=== PATIENT | male | born 1975 | race Caucasian/White ===

== ENCOUNTER 2019-08-25 04:50 | Emergency (ER) | payer BC, MEDICAID ==
[~2019-08-25] VITALS: Ht 182.9 cm; Wt 75.0 kg
[2019-08-25] MEDS ORDERED: normal saline 1000ML IV soln IVB ONE (05:15)
[2019-08-25] MEDS ORDERED: magnesium 2GM in 50ml NS 50 ML IV ONE (05:15)
[2019-08-25] MEDS ORDERED: phenobarbital inj 260 MG in normal saline 100ml IV soln 100 ML IV ONE (05:15)
[2019-08-25] MEDS ORDERED: thiamine inj. 100 MG in normal saline 100ml IV soln 99 ML IV ONE (05:15)
[2019-08-25] MEDS ORDERED: magnesium oxide 400mg tablet PO ONE (05:55)
[2019-08-25] MEDS ORDERED: diltiazem 5mg/ml 5ml inj. IV ONE (05:55)
[2019-08-25] MEDS ORDERED: phenobarbital inj 130 MG in normal saline 100ml IV soln 100 ML IV ONE ×5 (05:55→06:25)
[2019-08-25 06:03] LABS: BASOPHILS % (AUTO) 0.2 % (0-1); EOSINOPHILS % (AUTO) 0 % (0-6); HEMOGLOBIN 14.5 g/dl (14.0-17.9); LYMPHOCYTES # (AUTO) 0.7 X10'3 (1.1-4.8); LYMPHOCYTES % (AUTO) 6.6 % (21-51); MEAN CORPUSCULAR HEMOGLOBIN 32.3 PG (27.0-31.0); MEAN CORPUSCULAR HGB CONC 34.6 g/dL (33.0-36.5); MEAN CORPUSCULAR VOLUME 93.4 FL (78-98); MEAN PLATELET VOLUME 7.4 FL (7.4-10.4); MONOCYTES # (AUTO) 0.3 X10'3 (0-0.9); NEUTROPHILS # (AUTO) 9.6 X10'3 (1.8-7.7); NEUTROPHILS % (AUTO) 90.2 % (42-75); PLATELET COUNT 155 X10'3 (140-440); RED BLOOD COUNT 4.49 X10'6 (4.70-6.10); WHITE BLOOD COUNT 10.7 X10'3 (4.5-11.0)
[2019-08-25 06:09] LABS: ALANINE AMINOTRANSFERASE 295 U/L (12-78); ALBUMIN 4.2 G/DL (3.4-5.0); ALBUMIN/GLOBULIN RATIO 1.5 (1.1-1.5); ALKALINE PHOSPHATASE 71 IU/L (46-116); ANION GAP 13 (8-16); ASPARTATE AMINO TRANSFERASE 130 U/L (10-37); BILIRUBIN,TOTAL 2.8 MG/DL (0.1-1.0); BLOOD UREA NITROGEN 12 MG/DL (7-18); BUN/CREATININE RATIO 10.9 (5.4-32.0); CALCIUM 9.2 MG/DL (8.5-10.1); CHLORIDE 94 MMOL/L (99-107); ETHANOL < 0.010 GM/DL (0.0-0.010); GLUCOSE 122 MG/DL (70-104); MAGNESIUM 2.2 MG/DL (1.5-2.4); SODIUM 132 MMOL/L (135-145); TOTAL CARBON DIOXIDE 24.6 MMOL/L (24-32); eGFR 72 ML/MIN
[2019-08-25 06:48] LABS: URINE AMPHETAMINE SCREEN NEGATIVE (Neg); URINE BARBITUATE SCREEN POSITIVE (Neg); URINE BENZODIAZEPINES SCREEN NEGATIVE (Neg); URINE CANNABINOID SCREEN NEGATIVE (Neg); URINE COCAINE SCREEN NEGATIVE (Neg); URINE METHADONE SCREEN NEGATIVE (Neg); URINE OPIATE SCREEN NEGATIVE (Neg); URINE PHENCYCLIDINE SCREEN NEGATIVE (Neg)
[2019-08-25 07:12] VITALS: BP 130/74
[2019-08-25] MEDS ORDERED: HYDR-3686 PO (14:55)
[2019-08-25] MEDS ORDERED: CHLO25CA10 PO (14:55)
[2019-08-25] MEDS ORDERED: CLON-529 PO (14:55)
[2019-08-25] MEDS ORDERED: ONDA4TAB6 PO (14:55)
== END 2019-08-25 07:17 | disposition home or self-care (01) ==
LOC: ER 04:50
DX: S01.512A Laceration without foreign body of oral cavity, initial encounter (principal); F10.239 Alcohol dependence with withdrawal, unspecified; R74.0 Nonspecific elevation of levels of transaminase and lactic acid dehydrogenase [LDH]; R56.9 Unspecified convulsions; W22.8XXA Striking against or struck by other objects, initial encounter; Y93.89 Activity, other specified; Y92.89 Other specified places as the place of occurrence of the external cause; Y99.8 Other external cause status; Y90.0 Blood alcohol level of less than 20 mg/100 ml
CPT/HCPCS: 36415; 70450; 71045; 80053; 80305; 80320; 83735; 84484; 85025; 93005; 96365; 96366; 96368; 99285; J2560; J3411; J7030

== ENCOUNTER 2019-08-25 12:43 | Emergency (ER) | payer BC, MEDICAID ==
[~2019-08-25] VITALS: Ht 182.9 cm; Wt 75.0 kg
[2019-08-25] MEDS ORDERED: CHLO25CA10 PO (14:55)
[2019-08-25] MEDS ORDERED: CLON-529 PO (14:55)
[2019-08-25] MEDS ORDERED: ONDA4TAB6 PO (14:55)
[2019-08-25] MEDS ORDERED: HYDR-3686 PO (14:55)
[2019-08-25 15:04] VITALS: BP 129/84
[2019-08-25] MEDS ORDERED: ketorolac trometh. 30mg/ml inj. IV ONE (15:35)
[2019-08-25] MEDS ORDERED: ketorolac tromethamine 15mg/ml inj. IV ONE (15:35)
== END 2019-08-25 16:44 | disposition home or self-care (01) ==
LOC: ER 12:44
DX: F10.10 Alcohol abuse, uncomplicated (principal); R56.9 Unspecified convulsions; Z79.899 Other long term (current) drug therapy; Y90.9 Presence of alcohol in blood, level not specified
CPT/HCPCS: 72040; 96374; 99283; J1885

== ENCOUNTER 2021-09-16 17:38 | Inpatient (IN) | payer MEDICAID ==
[~2021-09-16] VITALS: Ht 180.3 cm; Wt 81.8 kg
[~2021-09-16 17:38] MED LIST: CHLO25CA10 PO; CLON-529 PO; ONDA4TAB6 PO
[2021-09-16 19:38] LABS: BASOPHILS % (AUTO) 0.3 % (0-1); EOSINOPHILS % (AUTO) 0.2 % (0-6); HEMATOCRIT 40.8 % (42.0-52.0); HEMOGLOBIN 14.4 g/dl (14.0-17.9); LYMPHOCYTES # (AUTO) 1.5 X10'3 (1.1-4.8); LYMPHOCYTES % (AUTO) 29.6 % (21-51); MEAN CORPUSCULAR HEMOGLOBIN 35.4 PG (27.0-31.0); MEAN CORPUSCULAR HGB CONC 35.3 g/dL (33.0-36.5); MEAN CORPUSCULAR VOLUME 100.2 FL (78-98); MEAN PLATELET VOLUME 8.9 FL (7.4-10.4); MONOCYTES # (AUTO) 0.5 X10'3 (0-0.9); MONOCYTES % (AUTO) 9.4 % (2-12); NEUTROPHILS # (AUTO) 3.1 X10'3 (1.8-7.7); NEUTROPHILS % (AUTO) 60.5 % (42-75); PLATELET COUNT 93 X10'3 (140-440); RED BLOOD COUNT 4.08 X10'6 (4.70-6.10); RED CELL DISTRIBUTION WIDTH 16.2 % (11.5-14.5); WHITE BLOOD COUNT 5.2 X10'3 (4.5-11.0)
[2021-09-16] MEDS ORDERED: thiamine 100mg tablet PO ONE (19:55)
[2021-09-16 20:03] LABS: ALANINE AMINOTRANSFERASE 161 U/L (12-78); ALBUMIN 3.1 G/DL (3.4-5.0); ALBUMIN/GLOBULIN RATIO 0.9 (1.1-1.5); ALKALINE PHOSPHATASE 149 IU/L (46-116); ANION GAP 10 (8-16); ASPARTATE AMINO TRANSFERASE 194 U/L (10-37); BILIRUBIN,TOTAL 2.4 MG/DL (0.1-1.0); BLOOD UREA NITROGEN 22 MG/DL (7-18); BUN/CREATININE RATIO 14.7 (5.4-32.0); CALCIUM 8.3 MG/DL (8.5-10.1); CHLORIDE 87 MMOL/L (99-107); ETHANOL < 0.010 GM/DL (0.0-0.010); GLUCOSE 118 MG/DL (70-104); SODIUM 128 MMOL/L (135-145); TOTAL CARBON DIOXIDE 31.3 MMOL/L (24-32); TOTAL PROTEIN 6.6 G/DL (6.4-8.2); eGFR 50 ML/MIN
[2021-09-16 20:07] LABS: POTASSIUM 2.5 MMOL/L (3.5-5.1)
[2021-09-16] MEDS ORDERED: potassium Cl 10 mEq/100mL bag IV ONE (20:10)
[2021-09-16] MEDS ORDERED: potassium Cl 20 mEq SR tablet PO ONE (20:10)
[2021-09-16] MEDS ORDERED: magnesium 2GM in 50ml NS 50 ML IV ONE (20:10)
[2021-09-16] MEDS ORDERED: temazepam 15mg capsule PO PRN (21:00)
[2021-09-16] MEDS ORDERED: QUET-1 PO (21:10)
[2021-09-16] MEDS ORDERED: ringers solution, lacted 1,000 ML IV ONE (21:30)
[2021-09-16 21:35] LABS: CLARITY,URINE CLEAR (Clear); COLOR,URINE YELLOW (Yellow); GLUCOSE, URINE 100 mg/dl (Neg); KETONES,URINE 15 mg/dl (Neg); LEUKOCYTE ESTERASE ,URINE NEGATIVE (Neg); OCCULT BLOOD,URINE MODERATE (Neg); PROTEIN,URINE 100 mg/dl (Neg)
[2021-09-16] MEDS ORDERED: HYDROcodone/acetaminophen 5mg/325mg tablet PO PRN (21:35)
[2021-09-16] MEDS ORDERED: bisacodyl 10mg suppository rectal RC PRN (21:35)
[2021-09-16] MEDS ORDERED: magnesium Cl slow-release 64mg tablet PO PRN (21:35)
[2021-09-16] MEDS ORDERED: diphenhydrAMINE 25mg capsule PO PRN (21:35)
[2021-09-16] MEDS ORDERED: LORazepam 2 mg/ml vial IV PRN ×2 (21:35)
[2021-09-16] MEDS ORDERED: haloperidol lactate 5mg/ml inj IM PRN (21:35)
[2021-09-16] MEDS ORDERED: dextrose 50%-water 50ml dispensing syringe IV PRN (21:35)
[2021-09-16] MEDS ORDERED: ondansetron 4mg rapidly disintigrating tab PO PRN (21:35)
[2021-09-16] MEDS ORDERED: HYDROcodone/acetaminophen 10/325mg tab PO PRN (21:35)
[2021-09-16] MEDS ORDERED: magnesium 2GM in 50ml NS 50 ML IV PRN (21:35)
[2021-09-16] MEDS ORDERED: acetaminophen 650mg rectal suppository RC PRN (21:35)
[2021-09-16] MEDS ORDERED: mag hydrox/Alum hydrox/simeth 30ml oral suspension PO PRN (21:35)
[2021-09-16] MEDS ORDERED: diphenhydrAMINE 50 mg/ml inj IV PRN (21:35)
[2021-09-16] MEDS ORDERED: magnesium 4gm in 100ml NS 100 ML IV PRN (21:35)
[2021-09-16] MEDS ORDERED: HYDROmorphone inj. 0.5 MG/0.5 ML DISP.SYRIN IV PRN (21:35)
[2021-09-16] MEDS ORDERED: morphine 2 MG/ML inj. syringe IV PRN ×2 (21:35)
[2021-09-16] MEDS ORDERED: POTASSIUM BICARB 20meq eff tab 20 MEQ TABLET.EFF PO PRN (21:35)
[2021-09-16] MEDS ORDERED: ondansetron/PF 4mg/2ml inj IV PRN (21:35)
[2021-09-16] MEDS ORDERED: acetaminophen 325mg tablet PO PRN (21:35)
[2021-09-16] MEDS ORDERED: potassium CL 10mEq/100ml bag 100 ML IV PRN (21:35)
[2021-09-16] MEDS ORDERED: magnesium hydroxide 30ml (MOM) UD suspension PO PRN (21:35)
[2021-09-16 21:43] LABS: NITRITES, URINE NEGATIVE (Neg); UA COLLECTION TYPE CLN CATCH MIDSTREAM
[2021-09-16 21:44] LABS: WBC,URINE NONE SEEN /HPF (0-4)
[2021-09-16 21:45] LABS: BACTERIA,URINE NONE SEEN /HPF (Neg); MUCUS STRANDS FEW /LPF (Neg); RBC,URINE 0-2 /HPF (0-2); SQUAMOUS EPITHELIAL CELL,UR FEW /LPF (FEW)
[2021-09-16 21:51] LABS: URINE AMPHETAMINE SCREEN NEGATIVE (Neg); URINE BARBITUATE SCREEN NEGATIVE (Neg); URINE BENZODIAZEPINES SCREEN NEGATIVE (Neg); URINE CANNABINOID SCREEN NEGATIVE (Neg); URINE COCAINE SCREEN NEGATIVE (Neg); URINE METHADONE SCREEN NEGATIVE (Neg); URINE OPIATE SCREEN NEGATIVE (Neg); URINE PHENCYCLIDINE SCREEN NEGATIVE (Neg)
[2021-09-16 22:16] LABS: APTT 25 SECONDS (22-32)
[2021-09-16 22:19] LABS: CREATINE KINASE 568 U/L (39-308); LIPASE 393 U/L (73-393); PHOSPHORUS 1.6 MG/DL (2.3-4.5)
[2021-09-16] MEDS: potassium Cl 20mEq in NS 1,000 ML IV SCH (22:38)
[2021-09-16] MEDS ORDERED: Neutra Phos packet PO PRN (23:05)
[2021-09-16] MEDS ORDERED: sodium phosphate inj. 30 MMOL in dextrose 5%-water 250 ML IV PRN (23:05)
[2021-09-16] MEDS ORDERED: sodium phosphate inj. 15 MMOL in dextrose 5%-water 250 ML IV PRN (23:05)
--- NOTE | 2021-09-17 01:47 | NUR ---
PT. GIVEN NEUTRA PHOS PACKET AT 0140. TID (EVERY 8 HOURS). PHOS LAB NEEDS TO BE DRAWN AFTER 3RD PACKET IS GIVEN.
--- NOTE | 2021-09-17 01:49 | NUR ---
MRI FORM DONE.
[2021-09-17 05:16] LABS: BASOPHILS % (AUTO) 0.2 % (0-1); EOSINOPHILS # (AUTO) 0.1 X10'3 (0-0.9); HEMATOCRIT 32.9 % (42.0-52.0); HEMOGLOBIN 11.8 g/dl (14.0-17.9); LYMPHOCYTES # (AUTO) 1.5 X10'3 (1.1-4.8); MEAN CORPUSCULAR HEMOGLOBIN 35.5 PG (27.0-31.0); MEAN CORPUSCULAR VOLUME 98.4 FL (78-98); MEAN PLATELET VOLUME 8.6 FL (7.4-10.4); MONOCYTES # (AUTO) 0.3 X10'3 (0-0.9); MONOCYTES % (AUTO) 5.4 % (2-12); NEUTROPHILS # (AUTO) 2.9 X10'3 (1.8-7.7); NEUTROPHILS % (AUTO) 60.4 % (42-75); PLATELET COUNT 89 X10'3 (140-440); RED BLOOD COUNT 3.34 X10'6 (4.70-6.10); RED CELL DISTRIBUTION WIDTH 15.8 % (11.5-14.5); WHITE BLOOD COUNT 4.7 X10'3 (4.5-11.0)
[2021-09-17 05:28] LABS: ALANINE AMINOTRANSFERASE 117 U/L (12-78); ALBUMIN 2.4 G/DL (3.4-5.0); ALBUMIN/GLOBULIN RATIO 0.8 (1.1-1.5); ALKALINE PHOSPHATASE 117 IU/L (46-116); ANION GAP 6 (8-16); ASPARTATE AMINO TRANSFERASE 127 U/L (10-37); BILIRUBIN,TOTAL 1.7 MG/DL (0.1-1.0); BLOOD UREA NITROGEN 14 MG/DL (7-18); BUN/CREATININE RATIO 16.7 (5.4-32.0); CALCIUM 7.5 MG/DL (8.5-10.1); CHLORIDE 94 MMOL/L (99-107); CHOL/HDL RATIO 4.9 (0.00-4.99); CHOLESTEROL 97 MG/DL (0-200); CREATININE 0.84 MG/DL (0.60-1.10); GLUCOSE 120 MG/DL (70-104); HDL CHOLESTEROL 20 MG/DL (35-60); LDL CHOLESTEROL 47 MG/DL (50-100); MAGNESIUM 2.3 MG/DL (1.5-2.4); SODIUM 130 MMOL/L (135-145); TOTAL CARBON DIOXIDE 30.4 MMOL/L (24-32); TOTAL PROTEIN 5.3 G/DL (6.4-8.2); TRIGLYCERIDES 202 MG/DL (20-135); eGFR > 90 ML/MIN
[2021-09-17 05:32] LABS: POTASSIUM 2.6 MMOL/L (3.5-5.1)
[2021-09-17] MEDS: pantoprazole 40mg Tablet.DR PO SCH (07:19)
[2021-09-17] MEDS: thiamine 100mg/ml 2ml inj. IV SCH ×3 (07:19→20:46)
[2021-09-17] MEDS: POTASSIUM BICARB 20meq eff tab 20 MEQ TABLET.EFF PO PRN ×2 (07:20→12:34)
[2021-09-17] MEDS: acetaminophen 325mg tablet PO PRN ×2 (07:20→16:04)
[2021-09-17] MEDS: docusate sod 100mg capsule PO SCH ×2 (07:21→20:00)
[2021-09-17] MEDS: heparin, porcine 5000 units/ml vial SQ SCH ×2 (07:22→20:00)
[2021-09-17] MEDS: K and/or MAG REPLACEMENT MC SCH ×2 (07:22→20:00)
[2021-09-17] MEDS: potassium Cl 20mEq in NS 1,000 ML IV SCH ×2 (09:02→19:01)
[2021-09-17] MEDS: multivitamins, therapeutics tablet PO SCH (09:02)
[2021-09-17] MEDS: folic acid 1mg/0.2ml inj IV SCH (09:30)
--- NOTE | 2021-09-17 11:55 | NUR ---
DR URENA AT BEDSIDE.
[2021-09-17] MEDS ORDERED: mag hydrox/Alum hydrox/simeth 30ml oral suspension PO ONE (20:45)
[2021-09-17] MEDS ORDERED: quetiapine 100mg tablet PO SCH (21:00)
[2021-09-18] MEDS: acetaminophen 325mg tablet PO PRN (03:08)
[2021-09-18] MEDS: potassium Cl 20mEq in NS 1,000 ML IV SCH (03:32)
[2021-09-18] MEDS: K and/or MAG REPLACEMENT MC SCH (08:00)
[2021-09-18] MEDS: heparin, porcine 5000 units/ml vial SQ SCH (08:37)
[2021-09-18] MEDS: multivitamins, therapeutics tablet PO SCH (08:37)
[2021-09-18] MEDS: docusate sod 100mg capsule PO SCH (08:37)
[2021-09-18] MEDS: pantoprazole 40mg Tablet.DR PO SCH (08:37)
[2021-09-18] MEDS: thiamine 100mg/ml 2ml inj. IV SCH ×2 (08:37→12:58)
[2021-09-18] MEDS: folic acid 1mg/0.2ml inj IV SCH (08:58)
--- NOTE | 2021-09-18 10:32 | NUR ---
Pt with c/o pain to back, [place] given per pain scale. pt's iv access noted to be out. new Iv inserted to Left hand. Prn [id number] also given for severe anxiety/agitation. Monitoring ongoing
[2021-09-18 11:00] VITALS: BP 132/88
[2021-09-18 12:04] LABS: ALANINE AMINOTRANSFERASE 123 U/L (12-78); ALBUMIN 2.6 G/DL (3.4-5.0); ALBUMIN/GLOBULIN RATIO 0.7 (1.1-1.5); ALKALINE PHOSPHATASE 115 IU/L (46-116); ANION GAP 6 (8-16); ASPARTATE AMINO TRANSFERASE 89 U/L (10-37); BILIRUBIN,TOTAL 0.8 MG/DL (0.1-1.0); BLOOD UREA NITROGEN 9 MG/DL (7-18); BUN/CREATININE RATIO 11.8 (5.4-32.0); CALCIUM 8.4 MG/DL (8.5-10.1); CHLORIDE 99 MMOL/L (99-107); CREATININE 0.76 MG/DL (0.60-1.10); GLUCOSE 98 MG/DL (70-104); MAGNESIUM 2.1 MG/DL (1.5-2.4); POTASSIUM 3.4 MMOL/L (3.5-5.1); SODIUM 131 MMOL/L (135-145); TOTAL CARBON DIOXIDE 26.4 MMOL/L (24-32); TOTAL PROTEIN 6.1 G/DL (6.4-8.2); eGFR > 90 ML/MIN
[2021-09-18] MEDS ORDERED: MULT-25 PO (12:54)
[2021-09-18] MEDS ORDERED: NALT50TA PO (12:54)
[2021-09-18] MEDS ORDERED: THIA100T70 PO (12:54)
[2021-09-18] MEDS ORDERED: POTASSIUM BICARBONATE/CIT AC 10 MEQ TABLET.EFF ONE (12:56)
[2021-09-18] MEDS ORDERED: FOLI1TAB27 PO (12:56)
[2021-09-21] MEDS ORDERED: thiamine 100mg tablet PO SCH (08:00)
[2021-09-21] MEDS ORDERED: folic acid 1mg tablet PO SCH (08:00)
== END 2021-09-18 15:15 | disposition home or self-care (01) | DRG 52 ==
LOC: ER 17:38 → ED HOLD 21:38
PROVIDERS: ADMIT Family Medicine; ATTEND Family Medicine
DX: G93.41 Metabolic encephalopathy (principal); D69.6 Thrombocytopenia, unspecified; M62.82 Rhabdomyolysis; N17.9 Acute kidney failure, unspecified; E83.39 Other disorders of phosphorus metabolism; E87.1 Hypo-osmolality and hyponatremia; D53.9 Nutritional anemia, unspecified; R74.01 Elevation of levels of liver transaminase levels; K70.10 Alcoholic hepatitis without ascites; K76.0 Fatty (change of) liver, not elsewhere classified; E86.0 Dehydration; E87.6 Hypokalemia; F10.239 Alcohol dependence with withdrawal, unspecified; G40.909 Epilepsy, unspecified, not intractable, without status epilepticus; I10 Essential (primary) hypertension; M54.9 Dorsalgia, unspecified; R82.4 Acetonuria; Z79.899 Other long term (current) drug therapy; Z87.820 Personal history of traumatic brain injury
CPT/HCPCS: 36415; 70450; 71045; 80053; 80061; 80305; 80320; 81001; 82550; 83036; 83690; 83735; 83880; 84100; 84132; 84443; 84484; 85025; 85610; 85730; 93005; 99285; G0378; J1644; J2060; J2405; J3411; J3475; J3480; J3490; J7030; J7120

== ENCOUNTER 2021-10-01 04:45 | Emergency (ER) | payer MEDICAID ==
[~2021-10-01] VITALS: Ht 180.3 cm; Wt 75.8 kg
[~2021-10-01 04:45] MED LIST changes: -CHLO25CA10 PO; -CLON-529 PO; +FOLI1TAB27 PO; +MULT-25 PO; +NALT50TA PO; -ONDA4TAB6 PO; +QUET-1 PO; +THIA100T70 PO
[2021-10-01 04:59] VITALS: BP 136/101
== END 2021-10-01 06:30 | disposition left against medical advice (07) ==
LOC: ER 04:46
DX: M54.2 Cervicalgia (principal); Z53.21 Procedure and treatment not carried out due to patient leaving prior to being seen by health care provider

== ENCOUNTER 2021-10-04 20:19 | Emergency (ER) | payer MEDICAID ==
[~2021-10-04] VITALS: Ht 180.3 cm; Wt 81.8 kg
[2021-10-04 20:35] VITALS: BP 122/95
== END 2021-10-04 22:26 | disposition left against medical advice (07) ==
LOC: ER 20:20
DX: R56.9 Unspecified convulsions (principal); Z53.21 Procedure and treatment not carried out due to patient leaving prior to being seen by health care provider

== ENCOUNTER 2021-10-06 20:47 | Inpatient (IN) | payer MEDICAID ==
[~2021-10-06] VITALS: Ht 180.3 cm; Wt 75.8 kg
--- NOTE | 2021-10-06 22:30 | NUR ---
ASSUMED CARE OF PT. AWAKE AND ALERT. STATED LAST DRINK AT 1100. STATED "IM AFRAID IM GOING TO GET S SEIZURE. NO SZ ACTIVITY OBSERVE AT THIS TIME WILL MONITOR.
[2021-10-06] MEDS ORDERED: thiamine 100mg/ml 2ml inj. IV STA (22:52)
[2021-10-06] MEDS ORDERED: multivitamins, therapeutics tablet PO STA (22:52)
[2021-10-06] MEDS ORDERED: folic acid 1mg/0.2ml inj IV STA (22:52)
[2021-10-06] MEDS ORDERED: cloNIDine 0.1 mg tablet PO STA (22:52)
[2021-10-06] MEDS ORDERED: normal saline 1000ml 1,000 ML IV ONE (22:55)
--- NOTE | 2021-10-06 23:00 | NUR ---
MEDICATED PT WITH ATIVAN IV FOR ETOH WD. PT WITH ANXIETY AND TREMORS.WILL MONITOR.
[2021-10-06] MEDS: LORazepam 2 mg/ml vial IV PRN (23:54)
[2021-10-06 23:56] LABS: BASOPHILS % (AUTO) 0.6 % (0-1); EOSINOPHILS # (AUTO) 0.1 X10'3 (0-0.9); EOSINOPHILS % (AUTO) 1.7 % (0-6); HEMATOCRIT 36.2 % (42.0-52.0); HEMOGLOBIN 12.9 g/dl (14.0-17.9); LYMPHOCYTES # (AUTO) 2.1 X10'3 (1.1-4.8); LYMPHOCYTES % (AUTO) 39.3 % (21-51); MEAN CORPUSCULAR HGB CONC 35.7 g/dL (33.0-36.5); MEAN CORPUSCULAR VOLUME 100.9 FL (78-98); MEAN PLATELET VOLUME 7.4 FL (7.4-10.4); MONOCYTES # (AUTO) 0.3 X10'3 (0-0.9); MONOCYTES % (AUTO) 5.1 % (2-12); NEUTROPHILS # (AUTO) 2.8 X10'3 (1.8-7.7); NEUTROPHILS % (AUTO) 53.3 % (42-75); PLATELET COUNT 149 X10'3 (140-440); RED BLOOD COUNT 3.58 X10'6 (4.70-6.10); RED CELL DISTRIBUTION WIDTH 16.6 % (11.5-14.5); WHITE BLOOD COUNT 5.3 X10'3 (4.5-11.0)
[2021-10-07 00:05] LABS: ALANINE AMINOTRANSFERASE 36 U/L (12-78); ALBUMIN 3.1 G/DL (3.4-5.0); ALKALINE PHOSPHATASE 85 IU/L (46-116); ANION GAP 9 (8-16); ASPARTATE AMINO TRANSFERASE 58 U/L (10-37); BILIRUBIN,TOTAL 1.1 MG/DL (0.1-1.0); BLOOD UREA NITROGEN 8 MG/DL (7-18); BUN/CREATININE RATIO 8.2 (5.4-32.0); CALCIUM 8.6 MG/DL (8.5-10.1); CHLORIDE 101 MMOL/L (99-107); CREATININE 0.97 MG/DL (0.60-1.10); GLUCOSE 115 MG/DL (70-104); LIPASE 584 U/L (73-393); POTASSIUM 3.7 MMOL/L (3.5-5.1); SODIUM 139 MMOL/L (135-145); TOTAL PROTEIN 6.1 G/DL (6.4-8.2); eGFR 83 ML/MIN
[2021-10-07 00:08] LABS: ETHANOL < 0.010 GM/DL (0.0-0.010)
--- NOTE | 2021-10-07 01:00 | NUR ---
PT AT CT
--- NOTE | 2021-10-07 02:00 | NUR ---
PT AWAKE AND ALERT. NO S/S OF WITHDRAWALS AT THIS TIME. WILL MONITOR.
--- NOTE | 2021-10-07 03:00 | NUR ---
PT WITH EYES CLOSE NON LABORED BREATHING. NO S/S OF WITHDRAWAL NOTED AT THIS TIME.
[2021-10-07] MEDS ORDERED: dextrose 50%-water 50ml dispensing syringe IV PRN (04:05)
[2021-10-07] MEDS: dextrose 5%-1/2 normal saline 1,000 ML IV SCH ×2 (04:05→16:57)
[2021-10-07] MEDS ORDERED: LORazepam 2 mg/ml vial IV PRN (04:05)
[2021-10-07] MEDS ORDERED: morphine 2 MG/ML inj. syringe IV PRN ×2 (04:05)
[2021-10-07] MEDS ORDERED: ondansetron/PF 4mg/2ml inj IV PRN (04:05)
[2021-10-07] MEDS ORDERED: diphenhydrAMINE 25mg capsule PO PRN (04:05)
[2021-10-07] MEDS ORDERED: HYDROmorphone inj. 0.5 MG/0.5 ML DISP.SYRIN IV PRN (04:05)
[2021-10-07] MEDS ORDERED: HYDROcodone/acetaminophen 5mg/325mg tablet PO PRN (04:05)
[2021-10-07] MEDS ORDERED: magnesium hydroxide 30ml (MOM) UD suspension PO PRN (04:05)
[2021-10-07] MEDS ORDERED: ondansetron 4mg rapidly disintigrating tab PO PRN ×2 (04:05→16:05)
[2021-10-07] MEDS ORDERED: haloperidol 5mg tablet PO PRN (04:05)
[2021-10-07] MEDS ORDERED: diphenhydrAMINE 50 mg/ml inj IV PRN (04:05)
[2021-10-07] MEDS ORDERED: mag hydrox/Alum hydrox/simeth 30ml oral suspension PO PRN (04:05)
[2021-10-07] MEDS ORDERED: haloperidol lactate 5mg/ml inj IM PRN (04:05)
[2021-10-07] MEDS ORDERED: HYDROcodone/acetaminophen 10/325mg tab PO PRN (04:05)
[2021-10-07] MEDS ORDERED: bisacodyl 10mg suppository rectal RC PRN (04:05)
[2021-10-07] MEDS ORDERED: acetaminophen 325mg tablet PO PRN ×2 (04:05)
--- NOTE | 2021-10-07 05:00 | NUR ---
PT WITH EYES CLOSE NON LABORED BREATHING. NO S/S WITHDRAWALS. WILL MONITOR.
[2021-10-07 07:02] LABS: URINE AMPHETAMINE SCREEN NEGATIVE (Neg); URINE BARBITUATE SCREEN NEGATIVE (Neg); URINE BENZODIAZEPINES SCREEN NEGATIVE (Neg); URINE CANNABINOID SCREEN NEGATIVE (Neg); URINE COCAINE SCREEN NEGATIVE (Neg); URINE METHADONE SCREEN NEGATIVE (Neg); URINE OPIATE SCREEN NEGATIVE (Neg); URINE PHENCYCLIDINE SCREEN NEGATIVE (Neg)
[2021-10-07] MEDS: lactulose 20gm/30ml cup PO SCH ×2 (07:21→20:00)
[2021-10-07] MEDS: docusate sod 100mg capsule PO SCH ×2 (07:21→19:28)
[2021-10-07] MEDS: heparin, porcine 5000 units/ml vial SQ SCH ×2 (07:21→21:00)
[2021-10-07] MEDS ORDERED: pantoprazole 40mg Tablet.DR PO SCH (07:30)
[2021-10-07] MEDS ORDERED: folic acid 1mg/0.2ml inj IV SCH (08:00)
[2021-10-07] MEDS ORDERED: thiamine 100mg/ml 2ml inj. IV SCH (08:00)
[2021-10-07 09:31] LABS: APTT 25 SECONDS (22-32)
[2021-10-07 09:41] LABS: MAGNESIUM 1.7 MG/DL (1.5-2.4); PHOSPHORUS 3.9 MG/DL (2.3-4.5)
[2021-10-07] MEDS: LORazepam 2 mg/ml vial IV PRN ×3 (09:53→21:00)
--- NOTE | 2021-10-07 13:05 | NUR ---
attempted report, nurse to call back
--- NOTE | 2021-10-07 13:40 | NUR ---
Rec'd pt to room 4010a.
[2021-10-07 14:30] VITALS: BP 143/86
[2021-10-07] MEDS: thiamine 100mg tablet PO SCH ×2 (17:01→21:00)
[2021-10-07 18:00] VITALS: BP 123/82
--- NOTE | 2021-10-07 18:20 | NUR ---
Patient report given, questions answered & plan of care reviewed with VERNON Quesada.
[2021-10-07] MEDS ORDERED: potassium CL 10mEq/100ml bag 100 ML IV PRN (18:40)
[2021-10-07] MEDS ORDERED: magnesium 4gm in 100ml NS 100 ML IV PRN (18:40)
[2021-10-07] MEDS ORDERED: potassium Cl 20 mEq SR tablet PO PRN ×2 (18:40)
[2021-10-07] MEDS ORDERED: magnesium Cl slow-release 64mg tablet PO PRN (18:40)
[2021-10-07] MEDS ORDERED: K and/or MAG REPLACEMENT MC SCH (20:00)
[2021-10-07] MEDS ORDERED: thiamine 100mg tablet PO SCH (21:00)
[2021-10-07] MEDS ORDERED: quetiapine 100mg tablet PO SCH (21:00)
[2021-10-07] MEDS ORDERED: temazepam 15mg capsule PO PRN (21:00)
[2021-10-07 22:00] VITALS: BP 143/84
[2021-10-08] MEDS: dextrose 5%-1/2 normal saline 1,000 ML IV SCH (00:05)
[2021-10-08] MEDS: LORazepam 2 mg/ml vial IV PRN ×2 (00:10→02:16)
--- NOTE | 2021-10-08 01:24 | NUR ---
After administering ativan at midnight, patient continued to say he needs to get up and get things done. Putting on clothes, shoes and hat. Re oriented him to time and that even if he needs to get things done, nothing is open at this time. He agreed to wait to 7am and then he wants to leave.
--- NOTE | 2021-10-08 02:50 | NUR ---
I called regarding pt's desire to leave AMA and I informed the doctor that the patient had been given 2mg Ativan just about 30 minutes ago and that he had received multiple doses of Ativan throughout the night. Patient refusing to stay and is leaving AMA. Dr. Gunter told me to call the nursing casino supervisor to inform her of the situation. I asked the patient where he would go at this time of night and he said his house is nearby and he can walk there. I told him that with the medicine he had been given he cannot drive anywhere. I will call the nursing casino supervisor as instructed.
--- NOTE | 2021-10-08 03:00 | NUR ---
I called the nursing press shop supervisor to let her know about patient leaving AMA, she said to inform security to take him to the desk to get his personal belongings that are locked up in the safe including his keys to his home. I expressed my concern that he might have keys to a vehicle and that it would not be safe for him to drive. She instructed me to call the [employer] to take him home and we will pay the bill. I called [employer] and gave the pt's home address per patient's verbal answer where he lived and where he needs the ride to deliver him to.
--- NOTE | 2021-10-08 03:04 | NUR ---
patient insisting to go AMA. PIV removed and bands taken off. Charge nurse notified Nursing supervisor multifocal lens and MD. [place] service being called at this time. security to walk patient down to lobby to get belongings from safe.
--- NOTE | 2021-10-08 03:10 | NUR ---
[employer] has been called for patient and it will be 15-20 minutes before they arrive. I informed the patient that a CAB had been called and he was familiar with the CAB company. I told him that the hospital would pay for the ride home and that he is not to drive or walk home due to the Ativan he has been getting tonight for the DT's he is experiencing. He verbalized the understanding that he can't drive home due to the medications in his system and that he would go home by CAB. Security was escorting him to the Lobby and to get his belongings that are locked up in the safe prior to the Cab picking him up from the Lobby,
--- NOTE | 2021-10-08 03:20 | NUR ---
Security called me, and said that after the patient received his personal belongings from the safe he got attitude with the staff and walked off the property on his own and did not wait for the Cab ride.
[2021-10-08] MEDS ORDERED: multivitamins, therapeutics tablet PO SCH (08:00)
[2021-10-08] MEDS ORDERED: non-formulary drug (Thiamine Mononitrate (Vitamin B-1) 1 TAB) PO SCH (08:00)
[2021-10-08] MEDS ORDERED: folic acid 1mg tablet PO SCH ×2 (08:00)
[2021-10-08] MEDS ORDERED: naltrexone 50mg tablet PO SCH (08:00)
[2021-10-09] MEDS ORDERED: LORazepam 1 MG tablet PO PRN (04:05)
[2021-10-09] MEDS ORDERED: LORazepam 2 mg/ml vial IV PRN (04:05)
[2021-10-11] MEDS ORDERED: LORazepam 2 mg/ml vial IV PRN (04:05)
[2021-10-11] MEDS ORDERED: LORazepam 1 MG tablet PO PRN (04:05)
[2021-10-11] MEDS ORDERED: folic acid 1mg tablet PO SCH (08:00)
[2021-10-11] MEDS ORDERED: thiamine 100mg tablet PO SCH (08:00)
== END 2021-10-08 03:10 | disposition left against medical advice (07) | DRG 282 ==
LOC: ER 20:48 → ED HOLD 10-07 04:09 → ORTHO 4S 10-07 13:35
PROVIDERS: ADMIT Family Medicine; ATTEND Family Medicine
PROC: BW211ZZ Computerized Tomography (CT Scan) of Abdomen and Pelvis using Low Osmolar Contrast (ICD-10-PCS; principal; 2021-10-07)
DX: K85.90 Acute pancreatitis without necrosis or infection, unspecified (principal); G93.41 Metabolic encephalopathy; E72.20 Disorder of urea cycle metabolism, unspecified; K70.10 Alcoholic hepatitis without ascites; K76.0 Fatty (change of) liver, not elsewhere classified; D64.9 Anemia, unspecified; F10.230 Alcohol dependence with withdrawal, uncomplicated; G40.909 Epilepsy, unspecified, not intractable, without status epilepticus; I10 Essential (primary) hypertension; Z53.29 Procedure and treatment not carried out because of patient's decision for other reasons; Z79.899 Other long term (current) drug therapy
CPT/HCPCS: 36415; 74177; 80053; 80305; 80320; 82140; 82150; 82948; 83690; 83735; 83880; 84100; 85025; 85610; 85730; 87081; 93005; 96361; 96374; 96375; 99285; A6258; G0378; J1644; J2060; J3411; J3490; J7030; J7042

== ENCOUNTER 2021-10-08 15:42 | Emergency (ER) | payer MEDICAID ==
[~2021-10-08] VITALS: Ht 180.3 cm; Wt 81.0 kg
[2021-10-08 16:05] VITALS: BP 122/87
== END 2021-10-08 18:55 | disposition home or self-care (01) ==
LOC: ER 15:43
DX: F10.29 Alcohol dependence with unspecified alcohol-induced disorder (principal); Y90.9 Presence of alcohol in blood, level not specified; R56.9 Unspecified convulsions; Z79.899 Other long term (current) drug therapy
CPT/HCPCS: 99284

== ENCOUNTER 2021-10-12 04:11 | Emergency (ER) | payer MEDICAID ==
[~2021-10-12] VITALS: Ht 180.3 cm; Wt 79.0 kg
[2021-10-12 04:15] VITALS: BP 128/94
[2021-10-12] MEDS ORDERED: CHLO25CA10 PO (04:53)
[2021-10-12] MEDS ORDERED: LORazepam 1 MG tablet PO ONE (04:55)
== END 2021-10-12 05:10 | disposition home or self-care (01) ==
LOC: ER 04:12
DX: F10.930 Alcohol use, unspecified with withdrawal, uncomplicated (principal); Z79.899 Other long term (current) drug therapy; Y90.9 Presence of alcohol in blood, level not specified
CPT/HCPCS: 99283

== ENCOUNTER 2021-10-21 12:43 | Emergency (ER) | payer MEDICAID ==
[~2021-10-21] VITALS: Ht 172.7 cm; Wt 85.0 kg
[~2021-10-21 12:43] MED LIST changes: +CHLO25CA10 PO
[2021-10-21] MEDS ORDERED: gabapentin 300mg capsule PO ONE (13:05)
[2021-10-21] MEDS ORDERED: LORazepam 2 mg/ml vial IV ONE (13:05)
[2021-10-21] MEDS ORDERED: ondansetron/PF 4mg/2ml inj IV ONE (13:05)
[2021-10-21 13:40] LABS: BASOPHILS # (AUTO) 0.1 X10'3 (0-0.2); BASOPHILS % (AUTO) 0.8 % (0-1); EOSINOPHILS % (AUTO) 0 % (0-6); HEMATOCRIT 37.3 % (42.0-52.0); HEMOGLOBIN 12.8 g/dl (14.0-17.9); LYMPHOCYTES # (AUTO) 1.1 X10'3 (1.1-4.8); LYMPHOCYTES % (AUTO) 10.1 % (21-51); MEAN CORPUSCULAR HEMOGLOBIN 36.1 PG (27.0-31.0); MEAN CORPUSCULAR HGB CONC 34.2 g/dL (33.0-36.5); MEAN CORPUSCULAR VOLUME 105.7 FL (78-98); MEAN PLATELET VOLUME 6.5 FL (7.4-10.4); MONOCYTES # (AUTO) 0.7 X10'3 (0-0.9); NEUTROPHILS # (AUTO) 9.2 X10'3 (1.8-7.7); NEUTROPHILS % (AUTO) 83.1 % (42-75); PLATELET COUNT 345 X10'3 (140-440); RED BLOOD COUNT 3.53 X10'6 (4.70-6.10); RED CELL DISTRIBUTION WIDTH 18.7 % (11.5-14.5); WHITE BLOOD COUNT 11.1 X10'3 (4.5-11.0)
[2021-10-21 13:58] LABS: ALANINE AMINOTRANSFERASE 47 U/L (12-78); ALBUMIN 3.4 G/DL (3.4-5.0); ALBUMIN/GLOBULIN RATIO 1.2 (1.1-1.5); ALKALINE PHOSPHATASE 96 IU/L (46-116); ANION GAP 18 (8-16); ASPARTATE AMINO TRANSFERASE 53 U/L (10-37); BILIRUBIN,TOTAL 1.3 MG/DL (0.1-1.0); BLOOD UREA NITROGEN 14 MG/DL (7-18); BUN/CREATININE RATIO 9.6 (5.4-32.0); CALCIUM 7.8 MG/DL (8.5-10.1); CHLORIDE 101 MMOL/L (99-107); CREATININE 1.46 MG/DL (0.60-1.10); ETHANOL < 0.010 GM/DL (0.0-0.010); GLUCOSE 108 MG/DL (70-104); MAGNESIUM 1.6 MG/DL (1.5-2.4); POTASSIUM 4.6 MMOL/L (3.5-5.1); SODIUM 141 MMOL/L (135-145); TOTAL CARBON DIOXIDE 22.2 MMOL/L (24-32); TOTAL PROTEIN 6.3 G/DL (6.4-8.2); eGFR 52 ML/MIN
[2021-10-21] MEDS ORDERED: normal saline 1000ML IV soln IVB ONE (14:10)
[2021-10-21 14:24] LABS: ANISOCYTOSIS 2+; PLATELET ESTIMATE NORMAL; POLYCHROMASIA FEW; STOMATOCYTES 2+
[2021-10-21 16:57] VITALS: BP 133/87
== END 2021-10-21 16:57 | disposition home or self-care (01) ==
LOC: ER 12:43
DX: F10.239 Alcohol dependence with withdrawal, unspecified (principal); Z72.89 Other problems related to lifestyle; Z79.899 Other long term (current) drug therapy; Y90.0 Blood alcohol level of less than 20 mg/100 ml
CPT/HCPCS: 36415; 80053; 80320; 83735; 85008; 85025; 93005; 96361; 96374; 96375; 99284; J2060; J2405; J7030

== ENCOUNTER 2021-10-21 18:10 | Emergency (ER) | payer MEDICAID ==
[~2021-10-21] VITALS: Ht 180.3 cm; Wt 81.8 kg
--- NOTE | 2021-10-21 21:40 | NUR ---
ASSUMED CARE OF PT. AWAKE AND ALERT. STATED HE WAS JUST DISCHARGED EARLIER FROM ED WITH ALCOHOLISM. PT WAS GIVEN RESOURCES FOR REHAB. PT BACK IN ED WITH ETOH WD. CURRETLY WITH TREMORS.
[2021-10-21] MEDS ORDERED: LORazepam 1 MG tablet PO ONE (22:30)
[2021-10-21] MEDS ORDERED: thiamine 100mg tablet PO ONE (23:10)
[2021-10-21] MEDS ORDERED: folic acid 1mg tablet PO ONE (23:10)
--- NOTE | 2021-10-21 23:49 | NUR ---
PT PASSED ROAD TEST
[2021-10-21 23:54] VITALS: BP 136/86
== END 2021-10-21 23:55 | disposition home or self-care (01) ==
LOC: ER 18:11
DX: F10.129 Alcohol abuse with intoxication, unspecified (principal); Z79.899 Other long term (current) drug therapy; Y90.9 Presence of alcohol in blood, level not specified
CPT/HCPCS: 99284

== ENCOUNTER 2021-12-18 16:57 | Emergency (ER) | payer MEDICAID ==
[~2021-12-18] VITALS: Ht 180.3 cm; Wt 77.3 kg
[2021-12-18] MEDS ORDERED: normal saline 1000ML IV soln IV ONE (19:05)
[2021-12-18] MEDS ORDERED: ondansetron/PF 4mg/2ml inj IV ONE (19:45)
[2021-12-18 19:51] LABS: ALANINE AMINOTRANSFERASE 89 U/L (12-78); ALBUMIN 3.5 G/DL (3.4-5.0); ALBUMIN/GLOBULIN RATIO 1.2 (1.1-1.5); ALKALINE PHOSPHATASE 87 IU/L (46-116); ASPARTATE AMINO TRANSFERASE 111 U/L (10-37); BILIRUBIN,TOTAL 0.9 MG/DL (0.1-1.0); BLOOD UREA NITROGEN 3 MG/DL (7-18); BUN/CREATININE RATIO 4.1 (5.4-32.0); CHLORIDE 103 MMOL/L (99-107); CREATININE 0.73 MG/DL (0.60-1.10); ETHANOL < 0.010 GM/DL (0.0-0.010); GLUCOSE 111 MG/DL (70-104); MAGNESIUM 2.1 MG/DL (1.5-2.4); PHOSPHORUS 4.5 MG/DL (2.3-4.5); POTASSIUM 4.4 MMOL/L (3.5-5.1); SODIUM 137 MMOL/L (135-145); TOTAL PROTEIN 6.5 G/DL (6.4-8.2); eGFR > 90 ML/MIN
[2021-12-18 19:57] LABS: ANION GAP 5 (8-16); TOTAL CARBON DIOXIDE 28.7 MMOL/L (24-32)
[2021-12-18 20:00] LABS: BASOPHILS # (AUTO) 0.1 X10'3 (0-0.2); BASOPHILS % (AUTO) 1.3 % (0-1); EOSINOPHILS # (AUTO) 0.1 X10'3 (0-0.9); EOSINOPHILS % (AUTO) 2.4 % (0-6); HEMATOCRIT 41.4 % (42.0-52.0); HEMOGLOBIN 14.4 g/dl (14.0-17.9); LYMPHOCYTES # (AUTO) 1.9 X10'3 (1.1-4.8); LYMPHOCYTES % (AUTO) 36.1 % (21-51); MEAN CORPUSCULAR HEMOGLOBIN 37.9 PG (27.0-31.0); MEAN CORPUSCULAR HGB CONC 34.8 g/dL (33.0-36.5); MEAN CORPUSCULAR VOLUME 108.8 FL (78-98); MEAN PLATELET VOLUME 6.7 FL (7.4-10.4); MONOCYTES # (AUTO) 0.3 X10'3 (0-0.9); MONOCYTES % (AUTO) 5.3 % (2-12); NEUTROPHILS # (AUTO) 2.9 X10'3 (1.8-7.7); NEUTROPHILS % (AUTO) 54.9 % (42-75); PLATELET COUNT 337 X10'3 (140-440); RED BLOOD COUNT 3.81 X10'6 (4.70-6.10); WHITE BLOOD COUNT 5.2 X10'3 (4.5-11.0)
[2021-12-18] MEDS ORDERED: LORazepam 1 MG tablet PO ONE (22:10)
[2021-12-18] MEDS ORDERED: NALT50TA PO (22:24)
[2021-12-18] MEDS ORDERED: LORA-269 PO (22:24)
[2021-12-18 22:27] VITALS: BP 150/92
== END 2021-12-18 22:51 | disposition left against medical advice (07) ==
LOC: ER 16:57
DX: F10.129 Alcohol abuse with intoxication, unspecified (principal); Y90.9 Presence of alcohol in blood, level not specified
CPT/HCPCS: 36415; 80053; 80320; 83735; 84100; 85025; 96361; 96374; 99283; J2405; J7030

== ENCOUNTER 2022-11-22 12:21 | Emergency (ER) | payer MEDICAID ==
[~2022-11-22] VITALS: Ht 177.8 cm; Wt 90.0 kg
[~2022-11-22 12:21] MED LIST changes: +LORA-269 PO
[2022-11-22 12:42] VITALS: BP 135/102; PULSE 124; RESP 18; TEMP 97; O2SAT 97
== END 2022-11-22 14:12 | disposition left against medical advice (07) ==
LOC: ER 12:21
DX: F10.129 Alcohol abuse with intoxication, unspecified (principal); Z53.21 Procedure and treatment not carried out due to patient leaving prior to being seen by health care provider; F90.9 Attention-deficit hyperactivity disorder, unspecified type
CPT/HCPCS: 99281

== ENCOUNTER 2022-11-22 20:53 | Emergency (ER) | payer MEDICAID ==
[~2022-11-22] VITALS: Ht 180.3 cm; Wt 95.5 kg
[2022-11-22 21:26] VITALS: BP 155/92; PULSE 107; RESP 20; TEMP 98.7; O2SAT 98
== END 2022-11-23 01:13 | disposition left against medical advice (07) ==
LOC: ER 20:54
DX: M79.601 Pain in right arm (principal); Z53.21 Procedure and treatment not carried out due to patient leaving prior to being seen by health care provider
CPT/HCPCS: 99281

== ENCOUNTER 2022-12-01 02:57 | Inpatient (IN) | payer MEDICAID ==
[~2022-12-01] VITALS: Ht 180.3 cm; Wt 74.8 kg
[2022-12-01 03:12] VITALS: TEMP 97.2
[2022-12-01 05:53] LABS: BASOPHILS % (AUTO) 0.6 % (0-1); EOSINOPHILS % (AUTO) 0.5 % (0-6); HEMATOCRIT 42.5 % (42.0-52.0); HEMOGLOBIN 14.7 g/dl (14.0-17.9); LYMPHOCYTES # (AUTO) 1.9 X10'3 (1.1-4.8); LYMPHOCYTES % (AUTO) 32.4 % (21-51); MEAN CORPUSCULAR HGB CONC 34.6 g/dL (33.0-36.5); MONOCYTES # (AUTO) 0.5 X10'3 (0-0.9); MONOCYTES % (AUTO) 9.5 % (2-12); NEUTROPHILS # (AUTO) 3.3 X10'3 (1.8-7.7); PLATELET COUNT 291 X10'3 (140-440); RED BLOOD COUNT 4.21 X10'6 (4.70-6.10); RED CELL DISTRIBUTION WIDTH 17.3 % (11.5-14.5); WHITE BLOOD COUNT 5.7 X10'3 (4.5-11.0)
[2022-12-01 05:54] LABS: ALANINE AMINOTRANSFERASE 49 U/L (12-78); ALBUMIN 3.7 G/DL (3.4-5.0); ALKALINE PHOSPHATASE 90 IU/L (46-116); ANION GAP 9 (8-16); ASPARTATE AMINO TRANSFERASE 40 U/L (10-37); BILIRUBIN,TOTAL 0.6 MG/DL (0.1-1.0); BLOOD UREA NITROGEN 7 MG/DL (7-18); BUN/CREATININE RATIO 7.9 (10.0-20.0); CALCIUM 8.7 MG/DL (8.5-10.1); CHLORIDE 97 MMOL/L (99-107); CREATININE 0.89 MG/DL (0.60-1.10); ETHANOL 196 MG/DL (<10); GLUCOSE 119 MG/DL (70-104); POTASSIUM 4.3 MMOL/L (3.5-5.1); SODIUM 133 MMOL/L (135-145); TOTAL CARBON DIOXIDE 26.6 MMOL/L (24-32); TOTAL PROTEIN 7.3 G/DL (6.4-8.2); eCRCL 107 ML/MIN; eGFR > 90 ML/MIN
[2022-12-01] MEDS ORDERED: LORazepam 2 mg/ml vial IV ONE ×2 (06:45→07:55)
[2022-12-01] MEDS ORDERED: folic acid 1mg/0.2ml inj IV ONE (06:45)
[2022-12-01] MEDS ORDERED: thiamine 100mg/ml 2ml inj. IV ONE (06:45)
[2022-12-01] MEDS ORDERED: morphine 2 MG/ML inj. syringe IV PRN ×2 (08:15)
[2022-12-01] MEDS ORDERED: dextrose 50%-water 50ml dispensing syringe IV PRN (08:15)
[2022-12-01] MEDS ORDERED: HYDROcodone/acetaminophen 10/325mg tab PO PRN (08:15)
[2022-12-01] MEDS ORDERED: metoclopramide 5 mg/ml inj IV PRN (08:15)
[2022-12-01] MEDS ORDERED: ondansetron/PF 4mg/2ml inj IV PRN (08:15)
[2022-12-01] MEDS ORDERED: mag hydrox/Alum hydrox/simeth 30ml oral suspension PO PRN ×2 (08:15)
[2022-12-01] MEDS ORDERED: dicyclomine 10 MG capsule PO PRN (08:15)
[2022-12-01] MEDS ORDERED: magnesium hydroxide 30ml (MOM) UD suspension PO PRN (08:15)
[2022-12-01] MEDS ORDERED: HYDROcodone/acetaminophen 5mg/325mg tablet PO PRN (08:15)
[2022-12-01] MEDS ORDERED: acetaminophen 325mg tablet PO PRN ×2 (08:15)
--- NOTE | 2022-12-01 10:13 | NUR ---
pt states he does not know when the last time he had a tetanus and has a gash on head, pt states he had a seizure and is un know date and time states head is not in the right place. XPLVN
[2022-12-01] MEDS ORDERED: TETanus/Pertussis (Acell)/Diphther VAC/PF (Tdap-Adult) 0.5ml syringe IMVAC ONE (10:15)
--- NOTE | 2022-12-01 10:16 | NUR ---
received report assuming care of pt attempting to place new piv
[2022-12-01] MEDS: LORazepam 2 mg/ml vial IV PRN ×4 (10:50→18:07)
[2022-12-01] MEDS ORDERED: chlordiazePOXIDE 25mg capsule PO ONE (10:55)
[2022-12-01] MEDS ORDERED: diazepam inj 5 MG/ML inj. IV ONE (10:55)
[2022-12-01] MEDS ORDERED: normal saline 1000ml 1,000 ML IV ONE (11:00)
[2022-12-01] MEDS: haloperidol lactate 5mg/ml inj IM PRN ×2 (11:19→18:11)
--- NOTE | 2022-12-01 11:21 | NUR ---
Helping [employer] OFFICER pt,. remains agiatated, confused after multiple Ativans, Valium, Haldol given as ordered IM. Pt. calmiong. Tolerating POs, has shaking quite frequently, MD aware.
--- NOTE | 2022-12-01 12:47 | NUR ---
pt is sleeping vitals are stable
[2022-12-01] MEDS: thiamine 100mg/ml 2ml inj. IV SCH ×2 (13:19→20:40)
--- NOTE | 2022-12-01 15:21 | NUR ---
Pt urinated all over floor when asking for urinal, clothing changed, linen, called housekeeping. Pt. wants to go home, explained he is not steady at this time. Getting Ativan PRN.
--- NOTE | 2022-12-01 15:41 | NUR ---
Notified primary nurses pt. wants to leave, advised not safe at this time, pt. given Ativan, feels better. RN Evangelina and Cece LEI aware. Urinals at bedside, pt. voided on floor. Near nursing station, where others can see him in room 8, charge nurse aware of the patient's problems as described reported to her as well.
[2022-12-01] MEDS ORDERED: ALPR0.252 PO (15:57)
[2022-12-01] MEDS ORDERED: QUET400T13 PO (15:57)
[2022-12-01] MEDS ORDERED: IBUP-1985 PO (15:58)
--- NOTE | 2022-12-01 18:16 | NUR ---
Pt was very upset, shakes after Ativan, urinates on floor with urinals, room cleaned. Ativan given 4 mg per order, calmer, resting, COBOL ENGINEER caring for pt. gave Haldol 5 mg IN as well to help calm patient. Pt. has had these doses before and returns to agitation in a few hours. Pt. expresses desire to gt off alcohol, all day heavy drinker for over 20 years expressing a desire to stop. Wants to stay but, experiences overwhelming withdrawl. Denies hallucinations, SI and HI. Feels desperate about his ETOH problems, calms with supportive non-judgemental discussion. Understands he needs medical help at this time.
--- NOTE | 2022-12-01 18:20 | NUR ---
Charting as float nurse, all information reported to primary nurses, all shift.
--- NOTE | 2022-12-01 18:27 | NUR ---
report given to mynor bui assuming care of pt
[2022-12-01] MEDS ORDERED: docusate sod 100mg capsule PO SCH (20:00)
[2022-12-01 23:50] VITALS: BP 112/73; PULSE 70; RESP 18; O2SAT 96
[2022-12-02] MEDS: LORazepam 2 mg/ml vial IV PRN (01:40)
[2022-12-02] MEDS ORDERED: folic acid 1mg/0.2ml inj IV SCH (08:00)
[2022-12-05] MEDS ORDERED: thiamine 100mg tablet PO SCH (08:00)
[2022-12-06] MEDS ORDERED: folic acid 1mg tablet PO SCH (08:00)
== END 2022-12-02 03:08 | disposition left against medical advice (07) | DRG 770 ==
LOC: ER 02:58 → ED HOLD 08:15
PROVIDERS: ADMIT Internal Medicine; ATTEND Internal Medicine
DX: F10.229 Alcohol dependence with intoxication, unspecified (principal); F10.239 Alcohol dependence with withdrawal, unspecified; Z53.21 Procedure and treatment not carried out due to patient leaving prior to being seen by health care provider; Z79.899 Other long term (current) drug therapy
CPT/HCPCS: 36415; 80053; 80320; 85025; 87081; 90715; 99285; G0378; J1630; J2060; J3360; J3411; J3490; J7030

== ENCOUNTER 2022-12-05 11:28 | Emergency (ER) | payer MEDICAID ==
[~2022-12-05] VITALS: Ht 180.3 cm; Wt 90.0 kg
[~2022-12-05 11:28] MED LIST changes: +ALPR0.252 PO; -CHLO25CA10 PO; -FOLI1TAB27 PO; +IBUP-1985 PO; -LORA-269 PO; -MULT-25 PO; -NALT50TA PO; -QUET-1 PO; +QUET400T13 PO; -THIA100T70 PO
[2022-12-05 11:41] VITALS: BP 137/93; PULSE 82; RESP 16; O2SAT 99
[2022-12-05 12:43] LABS: BILIRUBIN,URINE MODERATE (Neg); CLARITY,URINE SLIGHTLY CLOUDY (Clear); COLOR,URINE YELLOW (Yellow); GLUCOSE, URINE NEGATIVE (Neg); KETONES,URINE >=80 mg/dl (Neg); LEUKOCYTE ESTERASE ,URINE SMALL (Neg); NITRITES, URINE NEGATIVE (Neg); OCCULT BLOOD,URINE NEGATIVE (Neg); PH,URINE 5.5 (4.8-8.0); PROTEIN,URINE TRACE mg/dl (Neg); UROBILINOGEN,URINE 0.2 E.U/dL (0.2-1.0)
[2022-12-05 13:02] LABS: UA COLLECTION TYPE CLN CATCH MIDSTREAM
[2022-12-05 13:04] LABS: MUCUS STRANDS FEW /LPF (Neg); SQUAMOUS EPITHELIAL CELL,UR FEW /LPF (FEW); WBC,URINE 20-30 /HPF (0-4)
[2022-12-05 13:05] LABS: BACTERIA,URINE FEW /HPF (Neg); RBC,URINE 0-2 /HPF (0-2); TRANSITIONAL EPI CELLS,URINE FEW /HPF; WBC CLUMPS,URINE FEW /HPF (NEGATIVE)
[2022-12-05] MEDS ORDERED: CEFD300C3 PO (13:22)
[2022-12-05 13:28] VITALS: TEMP 97.4
== END 2022-12-05 13:30 | disposition home or self-care (01) ==
LOC: ER 11:28
DX: N39.0 Urinary tract infection, site not specified (principal)
CPT/HCPCS: 81001; 87088; 99284

== ENCOUNTER 2022-12-05 21:29 | Emergency (ER) | payer MEDICAID ==
[~2022-12-05] VITALS: Ht 180.3 cm; Wt 90.9 kg
[~2022-12-05 21:29] MED LIST changes: +CEFD300C3 PO
[2022-12-05 21:46] VITALS: BP 157/93; PULSE 64; RESP 16; TEMP 97.8; O2SAT 99
--- NOTE | 2022-12-05 23:01 | NUR ---
called not in wr
--- NOTE | 2022-12-05 23:37 | NUR ---
call #2 not in [id number]
--- NOTE | 2022-12-06 00:27 | NUR ---
call #3 not in wr [id number]
== END 2022-12-06 00:39 | disposition left against medical advice (07) ==
LOC: ER 21:29
DX: R10.9 Unspecified abdominal pain (principal); Z53.21 Procedure and treatment not carried out due to patient leaving prior to being seen by health care provider
CPT/HCPCS: 99281

== ENCOUNTER 2022-12-06 01:43 | Emergency (ER) | payer MEDICAID ==
[~2022-12-06] VITALS: Ht 180.3 cm; Wt 90.9 kg
[2022-12-06 02:05] VITALS: BP 158/82; PULSE 62; RESP 17; TEMP 98; O2SAT 99
== END 2022-12-06 05:44 | disposition left against medical advice (07) ==
LOC: ER 01:43
DX: R10.9 Unspecified abdominal pain (principal); Z53.21 Procedure and treatment not carried out due to patient leaving prior to being seen by health care provider
CPT/HCPCS: 99281

== ENCOUNTER 2022-12-06 10:03 | Emergency (ER) | payer MEDICAID ==
[~2022-12-06] VITALS: Ht 175.3 cm; Wt 100.0 kg
[2022-12-06 10:06] VITALS: BP 154/89; PULSE 63; RESP 18; TEMP 97.8; O2SAT 100
== END 2022-12-06 12:04 | disposition left against medical advice (07) ==
LOC: ER 10:04
DX: F10.129 Alcohol abuse with intoxication, unspecified (principal); Z53.21 Procedure and treatment not carried out due to patient leaving prior to being seen by health care provider; Y90.9 Presence of alcohol in blood, level not specified
CPT/HCPCS: 99281